=== PATIENT | female | born 1955 | race Caucasian/White ===

== ENCOUNTER 2017-06-15 18:01 | Inpatient (IN) | payer MEDICARE, MEDICAID ==
[~2017-06-15] VITALS: Ht 161.3 cm; Wt 113.6 kg
[~2017-06-15 18:01] MED LIST: ALBU8.5H8 IH; ASPI-845 PO; ATOR10TA70 PO; FENO145T25 PO; FLUT1AER IH; GABA-532 PO; INSU100I25 SQ; IPRA3AMP IH; LEVO300T6 PO; NICO-631 TD; NOVLG SQ; ONDA4TAB11 PO; PER5325T PO; SPIIN IH; TELM1TAB33 PO
[2017-06-15 18:40] LABS: BASOPHILS # (AUTO) 0.1 X10'3 (0-0.2); BASOPHILS % (AUTO) 1.4 % (0-1); EOSINOPHILS # (AUTO) 0.5 X10'3 (0-0.9); EOSINOPHILS % (AUTO) 4.7 % (0-6); HEMATOCRIT 42.4 % (35.0-45.0); HEMOGLOBIN 14.2 g/dl (12.0-16.0); LYMPHOCYTES # (AUTO) 3.1 X10'3 (1.1-4.8); LYMPHOCYTES % (AUTO) 28.7 % (21-51); MEAN CORPUSCULAR HEMOGLOBIN 30.2 PG (27.0-31.0); MEAN CORPUSCULAR HGB CONC 33.4 % (33.0-36.5); MEAN CORPUSCULAR VOLUME 90.4 FL (78-98); MEAN PLATELET VOLUME 8.2 FL (7.4-10.4); MONOCYTES # (AUTO) 1.1 X10'3 (0-0.9); MONOCYTES % (AUTO) 10.5 % (2-12); NEUTROPHILS # (AUTO) 5.9 X10'3 (1.8-7.7); NEUTROPHILS % (AUTO) 54.7 % (42-75); PLATELET COUNT 461 X10'3 (140-440); RED CELL DISTRIBUTION WIDTH 14.5 % (11.5-14.5); WHITE BLOOD COUNT 10.8 X10'3 (4.5-11.0)
[2017-06-15 18:47] LABS: INR 0.9 INR; PARTIAL THROMBOPLASTIN TIME 28 SECONDS (22-32); PROTHROMBIN TIME 9.8 SECONDS (9.0-12.0)
[2017-06-15 18:53] LABS: ALANINE AMINOTRANSFERASE 27 U/L (12-78); ALBUMIN 2.9 G/DL (3.4-5.0); ALBUMIN/GLOBULIN RATIO 0.5 (1.1-1.5); ALKALINE PHOSPHATASE 115 IU/L (46-116); ANION GAP 6 (8-16); ASPARTATE AMINO TRANSFERASE 16 U/L (10-37); BILIRUBIN,TOTAL 0.3 MG/DL (0.1-1.0); BLOOD UREA NITROGEN 19 MG/DL (7-18); CALCIUM 9.7 MG/DL (8.5-10.1); CHLORIDE 98 MMOL/L (99-107); GLUCOSE 226 MG/DL (70-104); POTASSIUM 4.2 MMOL/L (3.5-5.1); SODIUM 135 MMOL/L (135-145); TOTAL CARBON DIOXIDE 30.7 MMOL/L (24-32); TOTAL PROTEIN 8.5 G/DL (6.4-8.2); eGFR 56 ML/MIN
[2017-06-15] MEDS ORDERED: ketorolac trometh inj. 60 MG/2 ML VIAL IM ONE (19:00)
[2017-06-15] MEDS ORDERED: iohexol 350MG/ML 100ml bottle IV ONE (19:05)
[2017-06-15] MEDS ORDERED: levoFLOXACIN-Levaquin 500mg/D5 100 ML IV ONE (21:30)
[2017-06-15] MEDS ORDERED: albuterol 2.5 MG/3 ML nebule NEB ONE (21:35)
[2017-06-15] MEDS ORDERED: PANT-47 PO (22:09)
[2017-06-15] MEDS ORDERED: FLUT1DIS INH (22:18)
[2017-06-15] MEDS ORDERED: ZOL50T PO (22:18)
[2017-06-15] MEDS ORDERED: ASPI-1265 PO (22:18)
[2017-06-15] MEDS ORDERED: LOSA1TAB39 PO (22:18)
[2017-06-15] MEDS ORDERED: BISA-155 PO (22:26)
[2017-06-15] MEDS ORDERED: POLY17PO10 PO (22:26)
[2017-06-15] MEDS ORDERED: BUSP5TAB3 PO (22:31)
[2017-06-15] MEDS ORDERED: EMPA10TA PO (22:31)
[2017-06-15] MEDS ORDERED: FENO145T38 PO (22:31)
[2017-06-15] MEDS ORDERED: morphine 2 MG/ML inj. syringe IV ONE (22:50)
[2017-06-15] MEDS ORDERED: ondansetron/PF 4mg/2ml inj IV ONE (23:30)
[2017-06-16] MEDS ORDERED: magnesium 2GM in 50ml NS 50 ML IV PRN (00:50)
[2017-06-16] MEDS ORDERED: acetaminophen 325mg tablet PO PRN (00:50)
[2017-06-16] MEDS ORDERED: potassium Cl 20 mEq SR tablet PO PRN ×2 (00:50)
[2017-06-16] MEDS ORDERED: HYDROcodone/acetaminophen 5mg/325mg tablet PO PRN (00:50)
[2017-06-16] MEDS ORDERED: magnesium 4gm in 100ml NS 100 ML IV PRN (00:50)
[2017-06-16] MEDS ORDERED: mag hydrox/Alum hydrox/simeth 30ml oral suspension PO PRN (00:50)
[2017-06-16] MEDS ORDERED: potassium Cl 40MEQ/NS 500ml 500 ML IV PRN ×2 (00:50)
[2017-06-16] MEDS ORDERED: magnesium hydroxide 30ml (MOM) UD suspension PO PRN (00:50)
[2017-06-16] MEDS ORDERED: magnesium Cl slow-release 64mg tablet PO PRN (00:50)
[2017-06-16] MEDS: methylPREDNISolone sod succ 125mg/2ml vial IV SCH ×3 (01:41→16:00)
[2017-06-16 02:00] VITALS: BP 126/67
[2017-06-16] MEDS: CefTRIAXone 2gm/NS 100ml IVPB 100 ML IV SCH ×2 (02:43→20:37)
[2017-06-16] MEDS: normal saline 1000ml 1,000 ML IV SCH ×2 (02:44→12:53)
[2017-06-16] MEDS: HYDROcodone/acetaminophen 10/325mg tab PO PRN ×2 (02:46→20:46)
[2017-06-16] MEDS: azithromycin/NS 500mg/250ml 250 ML IV SCH ×2 (04:18→20:37)
[2017-06-16] MEDS: ondansetron/PF 4mg/2ml inj IV PRN ×2 (04:42→21:43)
[2017-06-16] MEDS: K and/or MAG REPLACEMENT MC SCH (07:01)
[2017-06-16 07:08] VITALS: BP 119/70
[2017-06-16] MEDS: bisacodyl 5mg tablet.DR PO SCH (07:35)
[2017-06-16] MEDS: gabapentin 300mg capsule PO SCH ×2 (07:36→20:35)
[2017-06-16] MEDS: HYDROchlorothiazide 25mg tablet PO SCH (07:36)
[2017-06-16] MEDS: aspirin 81mg tab.chew PO SCH (07:36)
[2017-06-16] MEDS: atorvastatin 10mg tablet PO SCH (07:36)
[2017-06-16] MEDS: losartan 50mg tablet PO SCH (07:37)
[2017-06-16] MEDS: pantoprazole 40mg Tablet.DR PO SCH (07:37)
[2017-06-16] MEDS: heparin, porcine 5000 units/ml vial SQ SCH ×2 (07:40→20:36)
[2017-06-16] MEDS ORDERED: sertraline 50mg tablet PO SCH (08:00)
[2017-06-16 08:04] LABS: HEMOGLOBIN A1C 11.8 % (4.5-6.2)
[2017-06-16] MEDS: Insulin Detemir pen SQ SCH ×2 (08:40→21:17)
[2017-06-16] MEDS: busPIRone 5mg tablet PO SCH ×2 (08:40→20:35)
[2017-06-16] MEDS: lactobacillus rhamnosus 10,000 MMU CELLS/CAPSULE PO SCH (17:47)
[2017-06-16] MEDS ORDERED: dextrose 50%-water 50ml dispensing syringe IV PRN ×2 (18:15)
[2017-06-16] MEDS ORDERED: MESSAGE TO PHARMACY PO ONE (18:15)
[2017-06-16] MEDS ORDERED: dextrose ORAL solution 15 GM/59 ML bottle PO PRN ×2 (18:15)
[2017-06-16] MEDS ORDERED: glucagon, human recombinant 1mg kit SUBCUT PRN (18:15)
[2017-06-16] MEDS: insulin Lispro (HumaLOG) vial - multi-dose SQ SCH ×2 (19:31→21:18)
[2017-06-16 20:00] VITALS: BP 154/98
[2017-06-16] MEDS ORDERED: insulin glargine (Lantus) pen - multi-dose SQ SCH (21:00)
[2017-06-16 23:00] VITALS: BP 111/61
[2017-06-17] MEDS: methylPREDNISolone sod succ 125mg/2ml vial IV SCH ×3 (00:17→16:25)
[2017-06-17 06:43] LABS: BASOPHILS # (AUTO) 0.1 X10'3 (0-0.2); BASOPHILS % (AUTO) 0.5 % (0-1); EOSINOPHILS % (AUTO) 0 % (0-6); HEMATOCRIT 36.2 % (35.0-45.0); HEMOGLOBIN 12.3 g/dl (12.0-16.0); LYMPHOCYTES # (AUTO) 1.5 X10'3 (1.1-4.8); LYMPHOCYTES % (AUTO) 14.7 % (21-51); MEAN CORPUSCULAR HEMOGLOBIN 30.5 PG (27.0-31.0); MEAN CORPUSCULAR HGB CONC 33.9 % (33.0-36.5); MEAN CORPUSCULAR VOLUME 89.9 FL (78-98); MEAN PLATELET VOLUME 8.1 FL (7.4-10.4); MONOCYTES # (AUTO) 0.2 X10'3 (0-0.9); MONOCYTES % (AUTO) 1.7 % (2-12); NEUTROPHILS # (AUTO) 8.3 X10'3 (1.8-7.7); NEUTROPHILS % (AUTO) 83.1 % (42-75); PLATELET COUNT 431 X10'3 (140-440); RED BLOOD COUNT 4.02 X10'6 (4.20-5.60); RED CELL DISTRIBUTION WIDTH 14.6 % (11.5-14.5)
[2017-06-17 07:00] VITALS: BP 126/62
[2017-06-17 07:10] LABS: ALANINE AMINOTRANSFERASE 22 U/L (12-78); ALBUMIN 2.5 G/DL (3.4-5.0); ALBUMIN/GLOBULIN RATIO 0.5 (1.1-1.5); ALKALINE PHOSPHATASE 87 IU/L (46-116); ANION GAP 8 (8-16); ASPARTATE AMINO TRANSFERASE 13 U/L (10-37); BILIRUBIN,TOTAL 0.1 MG/DL (0.1-1.0); BLOOD UREA NITROGEN 26 MG/DL (7-18); BUN/CREATININE RATIO 23.6 (6.6-38.0); CALCIUM 8.6 MG/DL (8.5-10.1); CHLORIDE 99 MMOL/L (99-107); CHOL/HDL RATIO 4.9 (0.00-4.99); CHOLESTEROL 161 MG/DL (0-200); GLUCOSE 369 MG/DL (70-104); HDL CHOLESTEROL 33 MG/DL (35-60); LDL CHOLESTEROL 112 MG/DL (50-100); MAGNESIUM 1.8 MG/DL (1.5-2.4); POTASSIUM 4.6 MMOL/L (3.5-5.1); SODIUM 133 MMOL/L (135-145); TOTAL CARBON DIOXIDE 26.2 MMOL/L (24-32); TOTAL PROTEIN 7.5 G/DL (6.4-8.2); TRIGLYCERIDES 114 MG/DL (20-135); eGFR 50 ML/MIN
[2017-06-17] MEDS: K and/or MAG REPLACEMENT MC SCH (08:00)
[2017-06-17] MEDS: Insulin Detemir pen SQ SCH ×2 (08:43→20:57)
[2017-06-17] MEDS: insulin Lispro (HumaLOG) vial - multi-dose SQ SCH ×4 (08:44→20:59)
[2017-06-17] MEDS: heparin, porcine 5000 units/ml vial SQ SCH ×2 (08:50→20:50)
[2017-06-17] MEDS: aspirin 81mg tab.chew PO SCH (08:55)
[2017-06-17] MEDS: lactobacillus rhamnosus 10,000 MMU CELLS/CAPSULE PO SCH ×2 (08:55→16:22)
[2017-06-17] MEDS: bisacodyl 5mg tablet.DR PO SCH (08:56)
[2017-06-17] MEDS: busPIRone 5mg tablet PO SCH ×2 (08:56→20:49)
[2017-06-17] MEDS: losartan 50mg tablet PO SCH (08:56)
[2017-06-17] MEDS: HYDROchlorothiazide 25mg tablet PO SCH (08:57)
[2017-06-17] MEDS: gabapentin 300mg capsule PO SCH ×2 (08:58→20:49)
[2017-06-17] MEDS: atorvastatin 10mg tablet PO SCH (08:58)
[2017-06-17] MEDS: pantoprazole 40mg Tablet.DR PO SCH (08:58)
[2017-06-17] MEDS ORDERED: sertraline 25mg tablet PO ONE (09:00)
[2017-06-17 11:36] VITALS: BP 124/71
[2017-06-17 20:00] VITALS: BP 159/73
[2017-06-17] MEDS: CefTRIAXone 2gm/NS 100ml IVPB 100 ML IV SCH (20:49)
[2017-06-17] MEDS: HYDROcodone/acetaminophen 10/325mg tab PO PRN (20:53)
[2017-06-17] MEDS ORDERED: LORazepam 2 mg/ml vial IV ONE (22:30)
[2017-06-17 23:00] VITALS: BP 149/69
[2017-06-18] MEDS: methylPREDNISolone sod succ 125mg/2ml vial IV SCH (00:10)
[2017-06-18 06:15] LABS: BASOPHILS % (AUTO) 0.4 % (0-1); EOSINOPHILS % (AUTO) 0.2 % (0-6); HEMATOCRIT 37.5 % (35.0-45.0); HEMOGLOBIN 12.7 g/dl (12.0-16.0); LYMPHOCYTES # (AUTO) 1.5 X10'3 (1.1-4.8); LYMPHOCYTES % (AUTO) 11.4 % (21-51); MEAN CORPUSCULAR HEMOGLOBIN 30.7 PG (27.0-31.0); MEAN CORPUSCULAR HGB CONC 33.9 % (33.0-36.5); MEAN CORPUSCULAR VOLUME 90.8 FL (78-98); MEAN PLATELET VOLUME 8.7 FL (7.4-10.4); MONOCYTES # (AUTO) 0.2 X10'3 (0-0.9); MONOCYTES % (AUTO) 1.8 % (2-12); NEUTROPHILS % (AUTO) 86.2 % (42-75); PLATELET COUNT 435 X10'3 (140-440); RED BLOOD COUNT 4.13 X10'6 (4.20-5.60); RED CELL DISTRIBUTION WIDTH 14.8 % (11.5-14.5); WHITE BLOOD COUNT 12.8 X10'3 (4.5-11.0)
[2017-06-18 06:25] LABS: ALANINE AMINOTRANSFERASE 41 U/L (12-78); ALBUMIN 2.7 G/DL (3.4-5.0); ALBUMIN/GLOBULIN RATIO 0.5 (1.1-1.5); ALKALINE PHOSPHATASE 103 IU/L (46-116); ANION GAP 4 (8-16); ASPARTATE AMINO TRANSFERASE 21 U/L (10-37); BILIRUBIN,TOTAL 0.1 MG/DL (0.1-1.0); BLOOD UREA NITROGEN 27 MG/DL (7-18); CALCIUM 8.5 MG/DL (8.5-10.1); CHLORIDE 100 MMOL/L (99-107); GLUCOSE 307 MG/DL (70-104); MAGNESIUM 2.3 MG/DL (1.5-2.4); SODIUM 135 MMOL/L (135-145); TOTAL CARBON DIOXIDE 31.3 MMOL/L (24-32); TOTAL PROTEIN 7.7 G/DL (6.4-8.2); eGFR 56 ML/MIN
[2017-06-18 06:57] VITALS: BP 138/81
[2017-06-18] MEDS: K and/or MAG REPLACEMENT MC SCH (08:00)
[2017-06-18] MEDS: Insulin Detemir pen SQ SCH ×2 (08:44→20:32)
[2017-06-18] MEDS: insulin Lispro (HumaLOG) vial - multi-dose SQ SCH ×4 (08:46→20:34)
[2017-06-18] MEDS: heparin, porcine 5000 units/ml vial SQ SCH ×2 (08:50→20:29)
[2017-06-18] MEDS: bisacodyl 5mg tablet.DR PO SCH (08:53)
[2017-06-18] MEDS: HYDROchlorothiazide 25mg tablet PO SCH (08:53)
[2017-06-18] MEDS: atorvastatin 10mg tablet PO SCH (08:53)
[2017-06-18] MEDS: aspirin 81mg tab.chew PO SCH (08:53)
[2017-06-18] MEDS: busPIRone 5mg tablet PO SCH ×2 (08:54→20:28)
[2017-06-18] MEDS: gabapentin 300mg capsule PO SCH ×2 (08:54→20:27)
[2017-06-18] MEDS: azithromycin 250mg tablet PO SCH (08:55)
[2017-06-18] MEDS: lactobacillus rhamnosus 10,000 MMU CELLS/CAPSULE PO SCH ×2 (09:09→16:57)
[2017-06-18] MEDS: sertraline 25mg tablet PO SCH (09:09)
[2017-06-18] MEDS: pantoprazole 40mg Tablet.DR PO SCH (09:10)
[2017-06-18] MEDS: levoFLOXACIN 750MG TABLET PO SCH ×2 (09:10→09:12)
[2017-06-18] MEDS: predniSONE 20 mg tablet PO SCH (09:10)
[2017-06-18] MEDS: losartan 50mg tablet PO SCH (09:10)
[2017-06-18 11:00] VITALS: BP 153/85
[2017-06-18 20:00] VITALS: BP 160/93
[2017-06-18] MEDS ORDERED: LORazepam 2 mg/ml vial IV PRN (20:00)
[2017-06-18] MEDS: HYDROcodone/acetaminophen 10/325mg tab PO PRN (20:28)
[2017-06-18 23:00] VITALS: BP 143/78
[2017-06-19 06:25] LABS: BASOPHILS # (AUTO) 0.1 X10'3 (0-0.2); BASOPHILS % (AUTO) 0.7 % (0-1); EOSINOPHILS # (AUTO) 0.1 X10'3 (0-0.9); EOSINOPHILS % (AUTO) 0.8 % (0-6); HEMATOCRIT 37.6 % (35.0-45.0); HEMOGLOBIN 12.7 g/dl (12.0-16.0); LYMPHOCYTES # (AUTO) 3.6 X10'3 (1.1-4.8); LYMPHOCYTES % (AUTO) 25.7 % (21-51); MEAN CORPUSCULAR HEMOGLOBIN 30.6 PG (27.0-31.0); MEAN CORPUSCULAR HGB CONC 33.8 % (33.0-36.5); MEAN CORPUSCULAR VOLUME 90.7 FL (78-98); MEAN PLATELET VOLUME 8.9 FL (7.4-10.4); MONOCYTES # (AUTO) 0.5 X10'3 (0-0.9); MONOCYTES % (AUTO) 3.9 % (2-12); NEUTROPHILS # (AUTO) 9.7 X10'3 (1.8-7.7); NEUTROPHILS % (AUTO) 68.9 % (42-75); PLATELET COUNT 438 X10'3 (140-440); RED BLOOD COUNT 4.15 X10'6 (4.20-5.60); RED CELL DISTRIBUTION WIDTH 14.9 % (11.5-14.5)
[2017-06-19 06:53] LABS: ALANINE AMINOTRANSFERASE 41 U/L (12-78); ALBUMIN 2.5 G/DL (3.4-5.0); ALBUMIN/GLOBULIN RATIO 0.6 (1.1-1.5); ALKALINE PHOSPHATASE 87 IU/L (46-116); ANION GAP 5 (8-16); ASPARTATE AMINO TRANSFERASE 19 U/L (10-37); BILIRUBIN,TOTAL 0.2 MG/DL (0.1-1.0); BLOOD UREA NITROGEN 26 MG/DL (7-18); BUN/CREATININE RATIO 21.7 (6.6-38.0); CALCIUM 8.4 MG/DL (8.5-10.1); CHLORIDE 103 MMOL/L (99-107); GLUCOSE 75 MG/DL (70-104); MAGNESIUM 2.2 MG/DL (1.5-2.4); SODIUM 141 MMOL/L (135-145); TOTAL CARBON DIOXIDE 32.7 MMOL/L (24-32); TOTAL PROTEIN 6.9 G/DL (6.4-8.2); eGFR 46 ML/MIN
[2017-06-19 07:00] VITALS: BP 114/55
[2017-06-19] MEDS: bisacodyl 5mg tablet.DR PO SCH (07:11)
[2017-06-19] MEDS: HYDROchlorothiazide 25mg tablet PO SCH (07:11)
[2017-06-19] MEDS: losartan 50mg tablet PO SCH (07:11)
[2017-06-19] MEDS: gabapentin 300mg capsule PO SCH (07:12)
[2017-06-19] MEDS: atorvastatin 10mg tablet PO SCH (07:12)
[2017-06-19] MEDS: predniSONE 20 mg tablet PO SCH (07:12)
[2017-06-19] MEDS: aspirin 81mg tab.chew PO SCH (07:12)
[2017-06-19] MEDS: lactobacillus rhamnosus 10,000 MMU CELLS/CAPSULE PO SCH (07:12)
[2017-06-19] MEDS: azithromycin 250mg tablet PO SCH (07:12)
[2017-06-19] MEDS: sertraline 25mg tablet PO SCH (07:12)
[2017-06-19] MEDS: busPIRone 5mg tablet PO SCH (07:12)
[2017-06-19] MEDS: pantoprazole 40mg Tablet.DR PO SCH (07:12)
[2017-06-19] MEDS: heparin, porcine 5000 units/ml vial SQ SCH (07:13)
[2017-06-19] MEDS: K and/or MAG REPLACEMENT MC SCH (08:00)
[2017-06-19] MEDS: Insulin Detemir pen SQ SCH (08:42)
[2017-06-19] MEDS: insulin Lispro (HumaLOG) vial - multi-dose SQ SCH ×2 (08:43→13:14)
[2017-06-19] MEDS: levoFLOXACIN 750MG TABLET PO SCH (11:06)
[2017-06-19 11:48] VITALS: BP 121/72
== END 2017-06-19 13:45 | DRG 682 ==
LOC: ER 18:01 → ED HOLD 06-16 00:48 → MED 3N 06-16 02:23
PROVIDERS: ADMIT Internal Medicine; ATTEND Internal Medicine
PROC: B32T1ZZ Computerized Tomography (CT Scan) of Left Pulmonary Artery using Low Osmolar Contrast (ICD-10-PCS; principal; 2017-06-15)
PROC: B3201ZZ Computerized Tomography (CT Scan) of Thoracic Aorta using Low Osmolar Contrast (ICD-10-PCS; 2017-06-15)
PROC: B32S1ZZ Computerized Tomography (CT Scan) of Right Pulmonary Artery using Low Osmolar Contrast (ICD-10-PCS; 2017-06-15)
DX: N17.0 Acute kidney failure with tubular necrosis (principal); J18.1 Lobar pneumonia, unspecified organism; J96.21 Acute and chronic respiratory failure with hypoxia; E43 Unspecified severe protein-calorie malnutrition; E11.40 Type 2 diabetes mellitus with diabetic neuropathy, unspecified; Z99.81 Dependence on supplemental oxygen; J44.1 Chronic obstructive pulmonary disease with (acute) exacerbation; Z68.41 Body mass index [BMI] 40.0-44.9, adult; J44.0 Chronic obstructive pulmonary disease with (acute) lower respiratory infection; D47.3 Essential (hemorrhagic) thrombocythemia; K21.9 Gastro-esophageal reflux disease without esophagitis; E03.9 Hypothyroidism, unspecified; E66.01 Morbid (severe) obesity due to excess calories; E78.5 Hyperlipidemia, unspecified; F32.9 Major depressive disorder, single episode, unspecified; F41.9 Anxiety disorder, unspecified; G47.30 Sleep apnea, unspecified; T38.0X5A Adverse effect of glucocorticoids and synthetic analogues, initial encounter; I10 Essential (primary) hypertension; I25.10 Atherosclerotic heart disease of native coronary artery without angina pectoris; K57.30 Diverticulosis of large intestine without perforation or abscess without bleeding; K59.00 Constipation, unspecified; Z56.0 Unemployment, unspecified; I25.2 Old myocardial infarction; Z79.82 Long term (current) use of aspirin; Z79.4 Long term (current) use of insulin; Z79.899 Other long term (current) drug therapy; Z86.73 Personal history of transient ischemic attack (TIA), and cerebral infarction without residual deficits; Z87.891 Personal history of nicotine dependence; Z82.5 Family history of asthma and other chronic lower respiratory diseases; Z80.9 Family history of malignant neoplasm, unspecified; Z83.3 Family history of diabetes mellitus; Y92.89 Other specified places as the place of occurrence of the external cause
CPT/HCPCS: 36415; 71045; 71275; 74174; 80053; 80061; 82948; 83036; 83605; 83735; 84145; 84484; 85025; 85610; 85730; 87040; 87070; 87502; 87503; 93005; 93306; 94640; 94760; 96372; 96374; 96375; 97116; 97162; 97530; 99285; J0456; J0696; J1644; J1815; J1885; J1956; J2060; J2270; J2405; J2930; J7030; J7512; Q9967

== ENCOUNTER 2017-07-05 22:53 | Inpatient (IN) | payer MEDICARE, MEDICAID ==
[~2017-07-05] VITALS: Ht 160 cm; Wt 118.0 kg
[~2017-07-05 22:53] MED LIST changes: +ASPI-1265 PO; -ASPI-845 PO; +BISA-155 PO; +BUSP5TAB3 PO; +EMPA10TA PO; -FENO145T25 PO; +FENO145T38 PO; -FLUT1AER IH; +FLUT1DIS INH; -IPRA3AMP IH; -LEVO300T6 PO; +LOSA1TAB39 PO; -NICO-631 TD; +PANT-47 PO; -PER5325T PO; +POLY17PO10 PO; -TELM1TAB33 PO; +ZOL50T PO
[2017-07-05] MEDS ORDERED: albuterol 2.5 MG/3 ML nebule NEB ONE (23:15)
[2017-07-05] MEDS ORDERED: magnesium 2GM in 50ml NS 50 ML IV ONE (23:15)
[2017-07-05] MEDS ORDERED: methylPREDNISolone sod succ 125mg/2ml vial IV ONE (23:15)
[2017-07-05 23:35] LABS: BASOPHILS % (AUTO) 0 % (0-1); EOSINOPHILS # (AUTO) 0.5 X10'3 (0-0.9); EOSINOPHILS % (AUTO) 6.1 % (0-6); HEMOGLOBIN 12.4 g/dl (12.0-16.0); LYMPHOCYTES # (AUTO) 1.5 X10'3 (1.1-4.8); LYMPHOCYTES % (AUTO) 19.8 % (21-51); MEAN CORPUSCULAR HEMOGLOBIN 30.3 PG (27.0-31.0); MEAN CORPUSCULAR HGB CONC 33.6 % (33.0-36.5); MEAN CORPUSCULAR VOLUME 90.4 FL (78-98); MEAN PLATELET VOLUME 8.6 FL (7.4-10.4); MONOCYTES # (AUTO) 0.1 X10'3 (0-0.9); MONOCYTES % (AUTO) 0.8 % (2-12); NEUTROPHILS # (AUTO) 5.6 X10'3 (1.8-7.7); NEUTROPHILS % (AUTO) 73.3 % (42-75); PLATELET COUNT 229 X10'3 (140-440); RED BLOOD COUNT 4.09 X10'6 (4.20-5.60); RED CELL DISTRIBUTION WIDTH 15.4 % (11.5-14.5); WHITE BLOOD COUNT 7.6 X10'3 (4.5-11.0)
[2017-07-05 23:52] LABS: ALANINE AMINOTRANSFERASE 33 U/L (12-78); ALBUMIN 2.9 G/DL (3.4-5.0); ALBUMIN/GLOBULIN RATIO 0.7 (1.1-1.5); ALKALINE PHOSPHATASE 90 IU/L (46-116); ANION GAP 9 (8-16); ASPARTATE AMINO TRANSFERASE 38 U/L (10-37); BILIRUBIN,TOTAL 0.2 MG/DL (0.1-1.0); BLOOD UREA NITROGEN 20 MG/DL (7-18); BUN/CREATININE RATIO 12.1 (6.6-38.0); CALCIUM 8.8 MG/DL (8.5-10.1); CHLORIDE 99 MMOL/L (99-107); CREATININE 1.65 MG/DL (0.40-0.90); GLUCOSE 237 MG/DL (70-104); SODIUM 137 MMOL/L (135-145); TOTAL CARBON DIOXIDE 28.9 MMOL/L (24-32); TOTAL PROTEIN 7.1 G/DL (6.4-8.2); eGFR 32 ML/MIN
[2017-07-05 23:55] LABS: PLATELET ESTIMATE NORMAL; TOTAL CELLS COUNTED 100
[2017-07-06] MEDS ORDERED: SITA100T11 PO (02:17)
[2017-07-06] MEDS ORDERED: HYDR-3973 PO (02:17)
[2017-07-06] MEDS ORDERED: LORA0.5T PO (02:17)
[2017-07-06] MEDS ORDERED: GUAI100L55 (02:17)
[2017-07-06] MEDS ORDERED: MORP15TA PO (02:17)
[2017-07-06] MEDS ORDERED: LEVO750T21 PO (02:17)
[2017-07-06] MEDS ORDERED: IPRA3AMP IH (02:17)
[2017-07-06] MEDS ORDERED: morphine 4 MG/ML inj SYRINge IV ONE (02:20)
[2017-07-06] MEDS ORDERED: ondansetron/PF 4mg/2ml inj IV ONE (03:10)
[2017-07-06] MEDS ORDERED: LORazepam 0.5 MG tablet PO PRN (03:10)
[2017-07-06] MEDS ORDERED: acetaminophen 650mg rectal suppository RC PRN (03:15)
[2017-07-06] MEDS ORDERED: glucagon, human recombinant 1mg kit SUBCUT PRN (03:15)
[2017-07-06] MEDS ORDERED: dextrose 50%-water 50ml dispensing syringe IV PRN ×2 (03:15)
[2017-07-06] MEDS ORDERED: diphenhydrAMINE 25mg capsule PO PRN (03:15)
[2017-07-06] MEDS ORDERED: magnesium hydroxide 30ml (MOM) UD suspension PO PRN (03:15)
[2017-07-06] MEDS ORDERED: MESSAGE TO PHARMACY PO ONE (03:15)
[2017-07-06] MEDS ORDERED: HYDROcodone/acetaminophen 10/325mg tab PO PRN (03:15)
[2017-07-06] MEDS ORDERED: acetaminophen 325mg tablet PO PRN ×2 (03:15)
[2017-07-06] MEDS ORDERED: metoclopramide 5 mg/ml inj IV PRN (03:15)
[2017-07-06] MEDS ORDERED: ondansetron/PF 4mg/2ml inj IV PRN (03:15)
[2017-07-06] MEDS ORDERED: HYDROmorphone inj. 0.5 MG/0.5 ML DISP.SYRIN IV PRN ×2 (03:15)
[2017-07-06] MEDS ORDERED: HYDROcodone/acetaminophen 5mg/325mg tablet PO PRN (03:15)
[2017-07-06] MEDS ORDERED: diphenhydrAMINE 50 mg/ml inj IV PRN (03:15)
[2017-07-06] MEDS ORDERED: mag hydrox/Alum hydrox/simeth 30ml oral suspension PO PRN (03:15)
[2017-07-06] MEDS ORDERED: bisacodyl 10mg suppository rectal RC PRN (03:15)
[2017-07-06] MEDS ORDERED: morphine 2 MG/ML inj. syringe IV PRN ×2 (03:15)
[2017-07-06] MEDS ORDERED: dextrose ORAL solution 15 GM/59 ML bottle PO PRN ×2 (03:15)
[2017-07-06] MEDS ORDERED: morphine 10 MG/5 ML UD oral solution PO PRN (03:25)
[2017-07-06] MEDS ORDERED: azithromycin 250mg tablet PO SCH (03:35)
[2017-07-06 03:51] LABS: ABG BASE EXCESS 2.9 mmol/L (-2.0-3.0); ABG HCO3 28.5 mmol/L (22.0-26.0); ABG OXYGEN SATURATION 94.3 % (95-98); ABG PCO2 (T) 48.6 mmHg (32.0-45.0); ABG PH (T) 7.388 (7.350-7.450); ALLEN'S TEST Positive; FCOHb 0.6 % (0.5-1.5); FLOW 4 L/min; FMetHb 0.1 % (0.3-1.12); FO2Hb 93.6 % (94-100); PATIENT TEMPERATURE 37.4
[2017-07-06 03:55] LABS: MAGNESIUM 1.8 MG/DL (1.5-2.4)
[2017-07-06 04:00] VITALS: BP 132/62
[2017-07-06] MEDS ORDERED: HYDROcodone/acetaminophen 10/325mg tab PO SCH (04:00)
[2017-07-06] MEDS ORDERED: cefTRIAXone 1g/NS 100ml IVPB 100 ML IV SCH (04:00)
[2017-07-06] MEDS ORDERED: ipratropium/albuterol 3ml nebule NEB PRN (04:25)
[2017-07-06] MEDS: ipratropium 0.5 MG/2.5ML nebule IH SCH ×4 (04:33→21:12)
[2017-07-06] MEDS: pantoprazole 40mg Tablet.DR PO SCH (07:35)
[2017-07-06] MEDS: fenofibrate 145mg tablet PO SCH (07:35)
[2017-07-06] MEDS: atorvastatin 10mg tablet PO SCH (07:36)
[2017-07-06] MEDS: aspirin 81mg tab.chew PO SCH (07:36)
[2017-07-06] MEDS: docusate sod 100mg capsule PO SCH ×2 (07:36→19:53)
[2017-07-06] MEDS: HYDROchlorothiazide 25mg tablet PO SCH (07:36)
[2017-07-06] MEDS: enoxaparin 30mg/0.3ml syringe SQ SCH ×2 (07:37→19:54)
[2017-07-06] MEDS: gabapentin 300mg capsule PO SCH ×2 (07:37→19:53)
[2017-07-06] MEDS: busPIRone 5mg tablet PO SCH ×2 (07:37→19:53)
[2017-07-06] MEDS: losartan 50mg tablet PO SCH (07:37)
[2017-07-06] MEDS: sertraline 50mg tablet PO SCH (07:37)
[2017-07-06 07:42] VITALS: BP 123/58
[2017-07-06] MEDS ORDERED: methylPREDNISolone sod succ 125mg/2ml vial IV SCH ×2 (08:00→20:00)
[2017-07-06] MEDS: insulin Lispro (HumaLOG) vial - multi-dose SQ SCH ×4 (08:34→21:21)
[2017-07-06 11:00] VITALS: BP 100/52
[2017-07-06] MEDS: azithromycin 250mg tablet PO SCH (15:47)
[2017-07-06 19:45] VITALS: BP 125/71
[2017-07-06] MEDS: methylPREDNISolone sod succ 125mg/2ml vial IV SCH (19:53)
[2017-07-06] MEDS ORDERED: temazepam 15mg capsule PO PRN (21:00)
[2017-07-06] MEDS: insulin glargine (Lantus) pen - multi-dose SQ SCH (21:22)
[2017-07-06 23:42] VITALS: BP 107/74
[2017-07-07] MEDS: ipratropium 0.5 MG/2.5ML nebule IH SCH ×4 (02:59→20:29)
[2017-07-07 06:01] LABS: BASOPHILS % (AUTO) 0.2 % (0-1); EOSINOPHILS % (AUTO) 0.2 % (0-6); HEMATOCRIT 35.1 % (35.0-45.0); HEMOGLOBIN 11.9 g/dl (12.0-16.0); LYMPHOCYTES # (AUTO) 1.3 X10'3 (1.1-4.8); LYMPHOCYTES % (AUTO) 13.1 % (21-51); MEAN CORPUSCULAR HEMOGLOBIN 30.6 PG (27.0-31.0); MEAN CORPUSCULAR HGB CONC 33.9 % (33.0-36.5); MEAN CORPUSCULAR VOLUME 90.3 FL (78-98); MEAN PLATELET VOLUME 8.9 FL (7.4-10.4); MONOCYTES # (AUTO) 0.1 X10'3 (0-0.9); MONOCYTES % (AUTO) 0.6 % (2-12); NEUTROPHILS # (AUTO) 8.6 X10'3 (1.8-7.7); NEUTROPHILS % (AUTO) 85.9 % (42-75); PLATELET COUNT 235 X10'3 (140-440); RED BLOOD COUNT 3.89 X10'6 (4.20-5.60); RED CELL DISTRIBUTION WIDTH 15.4 % (11.5-14.5); WHITE BLOOD COUNT 10.1 X10'3 (4.5-11.0)
[2017-07-07 06:28] LABS: ALANINE AMINOTRANSFERASE 39 U/L (12-78); ALBUMIN 2.8 G/DL (3.4-5.0); ALBUMIN/GLOBULIN RATIO 0.7 (1.1-1.5); ALKALINE PHOSPHATASE 67 IU/L (46-116); ANION GAP 9 (8-16); ASPARTATE AMINO TRANSFERASE 34 U/L (10-37); BILIRUBIN,TOTAL 0.2 MG/DL (0.1-1.0); BLOOD UREA NITROGEN 32 MG/DL (7-18); BUN/CREATININE RATIO 21.3 (6.6-38.0); CALCIUM 8.2 MG/DL (8.5-10.1); CHLORIDE 99 MMOL/L (99-107); CHOL/HDL RATIO 5.6 (0.00-4.99); CHOLESTEROL 141 MG/DL (0-200); GLUCOSE 286 MG/DL (70-104); HDL CHOLESTEROL 25 MG/DL (35-60); LDL CHOLESTEROL 91 MG/DL (50-100); POTASSIUM 4.4 MMOL/L (3.5-5.1); SODIUM 136 MMOL/L (135-145); TOTAL CARBON DIOXIDE 27.7 MMOL/L (24-32); TRIGLYCERIDES 167 MG/DL (20-135); eGFR 35 ML/MIN
[2017-07-07 08:00] VITALS: BP 104/63
[2017-07-07] MEDS: fenofibrate 145mg tablet PO SCH (08:29)
[2017-07-07] MEDS: pantoprazole 40mg Tablet.DR PO SCH (08:29)
[2017-07-07] MEDS: aspirin 81mg tab.chew PO SCH (08:29)
[2017-07-07] MEDS: busPIRone 5mg tablet PO SCH ×2 (08:29→19:18)
[2017-07-07] MEDS: gabapentin 300mg capsule PO SCH ×2 (08:30→19:18)
[2017-07-07] MEDS: sertraline 50mg tablet PO SCH (08:30)
[2017-07-07] MEDS: losartan 50mg tablet PO SCH (08:30)
[2017-07-07] MEDS: azithromycin 250mg tablet PO SCH (08:30)
[2017-07-07] MEDS: atorvastatin 10mg tablet PO SCH (08:30)
[2017-07-07] MEDS: HYDROchlorothiazide 25mg tablet PO SCH (08:30)
[2017-07-07] MEDS: methylPREDNISolone sod succ 125mg/2ml vial IV SCH ×2 (08:31→19:19)
[2017-07-07] MEDS: enoxaparin 30mg/0.3ml syringe SQ SCH ×2 (08:34→19:19)
[2017-07-07] MEDS: docusate sod 100mg capsule PO SCH ×2 (08:40→19:18)
[2017-07-07] MEDS: insulin Lispro (HumaLOG) vial - multi-dose SQ SCH ×4 (09:44→21:53)
[2017-07-07 12:00] VITALS: BP 123/72
[2017-07-07 18:00] VITALS: BP 140/74
[2017-07-07] MEDS: insulin glargine (Lantus) pen - multi-dose SQ SCH (21:54)
[2017-07-08] VITALS: BP 129/69
[2017-07-08] MEDS: ipratropium 0.5 MG/2.5ML nebule IH SCH ×4 (02:26→20:39)
[2017-07-08 06:49] LABS: BASOPHILS # (AUTO) 0.1 X10'3 (0-0.2); BASOPHILS % (AUTO) 0.9 % (0-1); EOSINOPHILS # (AUTO) 0.1 X10'3 (0-0.9); EOSINOPHILS % (AUTO) 0.7 % (0-6); HEMATOCRIT 35.8 % (35.0-45.0); HEMOGLOBIN 12.1 g/dl (12.0-16.0); LYMPHOCYTES % (AUTO) 15.9 % (21-51); MEAN CORPUSCULAR HEMOGLOBIN 30.6 PG (27.0-31.0); MEAN CORPUSCULAR HGB CONC 33.8 % (33.0-36.5); MEAN CORPUSCULAR VOLUME 90.4 FL (78-98); MEAN PLATELET VOLUME 8.6 FL (7.4-10.4); MONOCYTES # (AUTO) 0.8 X10'3 (0-0.9); MONOCYTES % (AUTO) 6.5 % (2-12); NEUTROPHILS # (AUTO) 9.7 X10'3 (1.8-7.7); PLATELET COUNT 261 X10'3 (140-440); RED BLOOD COUNT 3.95 X10'6 (4.20-5.60); RED CELL DISTRIBUTION WIDTH 15.1 % (11.5-14.5); WHITE BLOOD COUNT 12.7 X10'3 (4.5-11.0)
[2017-07-08 07:06] LABS: ALANINE AMINOTRANSFERASE 37 U/L (12-78); ALBUMIN/GLOBULIN RATIO 0.8 (1.1-1.5); ALKALINE PHOSPHATASE 53 IU/L (46-116); ANION GAP 8 (8-16); ASPARTATE AMINO TRANSFERASE 27 U/L (10-37); BILIRUBIN,TOTAL 0.2 MG/DL (0.1-1.0); BLOOD UREA NITROGEN 35 MG/DL (7-18); BUN/CREATININE RATIO 25.5 (6.6-38.0); CALCIUM 8.3 MG/DL (8.5-10.1); CHLORIDE 101 MMOL/L (99-107); CREATININE 1.37 MG/DL (0.40-0.90); GLUCOSE 224 MG/DL (70-104); POTASSIUM 4.4 MMOL/L (3.5-5.1); SODIUM 139 MMOL/L (135-145); TOTAL CARBON DIOXIDE 30.2 MMOL/L (24-32); eGFR 39 ML/MIN
[2017-07-08] MEDS: atorvastatin 10mg tablet PO SCH (07:39)
[2017-07-08] MEDS: busPIRone 5mg tablet PO SCH ×2 (07:39→20:16)
[2017-07-08] MEDS: methylPREDNISolone sod succ 125mg/2ml vial IV SCH ×2 (07:40→20:17)
[2017-07-08] MEDS: sertraline 50mg tablet PO SCH (07:40)
[2017-07-08] MEDS: docusate sod 100mg capsule PO SCH ×2 (07:40→20:16)
[2017-07-08] MEDS: losartan 50mg tablet PO SCH (07:40)
[2017-07-08] MEDS: HYDROchlorothiazide 25mg tablet PO SCH (07:40)
[2017-07-08] MEDS: fenofibrate 145mg tablet PO SCH (07:40)
[2017-07-08] MEDS: pantoprazole 40mg Tablet.DR PO SCH (07:40)
[2017-07-08] MEDS: gabapentin 300mg capsule PO SCH ×2 (07:40→20:16)
[2017-07-08] MEDS: aspirin 81mg tab.chew PO SCH (07:40)
[2017-07-08] MEDS: azithromycin 250mg tablet PO SCH (07:40)
[2017-07-08] MEDS: enoxaparin 30mg/0.3ml syringe SQ SCH ×2 (07:41→20:16)
[2017-07-08 08:00] VITALS: BP 134/76
[2017-07-08] MEDS: insulin Lispro (HumaLOG) vial - multi-dose SQ SCH ×4 (08:16→21:52)
[2017-07-08 11:00] VITALS: BP 148/76
[2017-07-08] MEDS: lactobacillus rhamnosus 10,000 MMU CELLS/CAPSULE PO SCH (17:37)
[2017-07-08 19:00] VITALS: BP 140/65
[2017-07-08 20:19] LABS: BASOPHILS # (AUTO) 0.2 X10'3 (0-0.2); BASOPHILS % (AUTO) 1.2 % (0-1); EOSINOPHILS % (AUTO) 0.2 % (0-6); HEMATOCRIT 38.3 % (35.0-45.0); HEMOGLOBIN 12.7 g/dl (12.0-16.0); MEAN CORPUSCULAR HEMOGLOBIN 30.3 PG (27.0-31.0); MEAN CORPUSCULAR HGB CONC 33.2 % (33.0-36.5); MEAN CORPUSCULAR VOLUME 91.4 FL (78-98); MEAN PLATELET VOLUME 9.1 FL (7.4-10.4); MONOCYTES # (AUTO) 0.7 X10'3 (0-0.9); MONOCYTES % (AUTO) 5.8 % (2-12); NEUTROPHILS # (AUTO) 9.6 X10'3 (1.8-7.7); NEUTROPHILS % (AUTO) 76.8 % (42-75); PLATELET COUNT 268 X10'3 (140-440); RED BLOOD COUNT 4.19 X10'6 (4.20-5.60); RED CELL DISTRIBUTION WIDTH 15.1 % (11.5-14.5); WHITE BLOOD COUNT 12.5 X10'3 (4.5-11.0)
[2017-07-08] MEDS: insulin glargine (Lantus) pen - multi-dose SQ SCH (21:48)
[2017-07-09] VITALS: BP 123/63
[2017-07-09] MEDS: ipratropium 0.5 MG/2.5ML nebule IH SCH ×2 (02:35→07:44)
[2017-07-09 05:37] LABS: BASOPHILS # (AUTO) 0.1 X10'3 (0-0.2); EOSINOPHILS # (AUTO) 0.1 X10'3 (0-0.9); EOSINOPHILS % (AUTO) 0.5 % (0-6); HEMATOCRIT 36.1 % (35.0-45.0); HEMOGLOBIN 12.4 g/dl (12.0-16.0); LYMPHOCYTES # (AUTO) 1.9 X10'3 (1.1-4.8); MEAN CORPUSCULAR HEMOGLOBIN 30.5 PG (27.0-31.0); MEAN CORPUSCULAR HGB CONC 34.3 % (33.0-36.5); MEAN PLATELET VOLUME 8.6 FL (7.4-10.4); MONOCYTES # (AUTO) 0.6 X10'3 (0-0.9); MONOCYTES % (AUTO) 5.7 % (2-12); NEUTROPHILS # (AUTO) 8.5 X10'3 (1.8-7.7); NEUTROPHILS % (AUTO) 75.8 % (42-75); PLATELET COUNT 249 X10'3 (140-440); RED BLOOD COUNT 4.06 X10'6 (4.20-5.60); RED CELL DISTRIBUTION WIDTH 14.9 % (11.5-14.5); WHITE BLOOD COUNT 11.3 X10'3 (4.5-11.0)
[2017-07-09 06:35] LABS: ALANINE AMINOTRANSFERASE 37 U/L (12-78); ALBUMIN 2.9 G/DL (3.4-5.0); ALBUMIN/GLOBULIN RATIO 0.7 (1.1-1.5); ALKALINE PHOSPHATASE 52 IU/L (46-116); ANION GAP 7 (8-16); ASPARTATE AMINO TRANSFERASE 20 U/L (10-37); BILIRUBIN,TOTAL 0.3 MG/DL (0.1-1.0); BLOOD UREA NITROGEN 32 MG/DL (7-18); BUN/CREATININE RATIO 26.9 (6.6-38.0); CALCIUM 8.2 MG/DL (8.5-10.1); CHLORIDE 100 MMOL/L (99-107); CREATININE 1.19 MG/DL (0.40-0.90); GLUCOSE 253 MG/DL (70-104); POTASSIUM 4.5 MMOL/L (3.5-5.1); SODIUM 137 MMOL/L (135-145); TOTAL CARBON DIOXIDE 30.1 MMOL/L (24-32); TOTAL PROTEIN 6.9 G/DL (6.4-8.2); eGFR 46 ML/MIN
[2017-07-09 07:00] VITALS: BP 141/77
[2017-07-09] MEDS: docusate sod 100mg capsule PO SCH (09:06)
[2017-07-09] MEDS: aspirin 81mg tab.chew PO SCH (09:06)
[2017-07-09] MEDS: azithromycin 250mg tablet PO SCH (09:06)
[2017-07-09] MEDS: fenofibrate 145mg tablet PO SCH (09:06)
[2017-07-09] MEDS: busPIRone 5mg tablet PO SCH (09:06)
[2017-07-09] MEDS: losartan 50mg tablet PO SCH (09:06)
[2017-07-09] MEDS: lactobacillus rhamnosus 10,000 MMU CELLS/CAPSULE PO SCH (09:07)
[2017-07-09] MEDS: atorvastatin 10mg tablet PO SCH (09:07)
[2017-07-09] MEDS: sertraline 50mg tablet PO SCH (09:07)
[2017-07-09] MEDS: HYDROchlorothiazide 25mg tablet PO SCH (09:08)
[2017-07-09] MEDS: gabapentin 300mg capsule PO SCH (09:08)
[2017-07-09] MEDS: pantoprazole 40mg Tablet.DR PO SCH (09:08)
[2017-07-09] MEDS: enoxaparin 30mg/0.3ml syringe SQ SCH (09:09)
[2017-07-09] MEDS: methylPREDNISolone sod succ 125mg/2ml vial IV SCH (09:09)
[2017-07-09] MEDS: insulin Lispro (HumaLOG) vial - multi-dose SQ SCH (09:17)
[2017-07-09 11:06] VITALS: BP 141/79
== END 2017-07-09 13:30 | DRG 291 ==
LOC: ER 22:53 → ED HOLD 07-06 03:11 → MED 3N 07-06 03:54
PROVIDERS: ADMIT Family Medicine; ATTEND Internal Medicine
DX: I11.0 Hypertensive heart disease with heart failure (principal); J18.9 Pneumonia, unspecified organism; N17.9 Acute kidney failure, unspecified; J44.1 Chronic obstructive pulmonary disease with (acute) exacerbation; J44.0 Chronic obstructive pulmonary disease with (acute) lower respiratory infection; I50.33 Acute on chronic diastolic (congestive) heart failure; E11.65 Type 2 diabetes mellitus with hyperglycemia; R09.02 Hypoxemia; E78.00 Pure hypercholesterolemia, unspecified; I25.10 Atherosclerotic heart disease of native coronary artery without angina pectoris; F32.9 Major depressive disorder, single episode, unspecified; I25.2 Old myocardial infarction; Z99.81 Dependence on supplemental oxygen; Z79.4 Long term (current) use of insulin; Z79.82 Long term (current) use of aspirin; Z79.899 Other long term (current) drug therapy; Z86.14 Personal history of Methicillin resistant Staphylococcus aureus infection; Z86.73 Personal history of transient ischemic attack (TIA), and cerebral infarction without residual deficits; Z87.891 Personal history of nicotine dependence; Z82.5 Family history of asthma and other chronic lower respiratory diseases; Z83.3 Family history of diabetes mellitus
CPT/HCPCS: 36415; 36600; 71045; 80053; 80061; 82803; 82948; 83036; 83735; 83880; 85018; 85025; 87070; 93005; 94640; 94667; 94668; 94760; 96365; 96366; 96375; 99285; J0696; J1650; J1815; J2270; J2405; J2930; J3475

== ENCOUNTER 2019-09-29 00:43 | Emergency (ER) | payer MEDICARE, MEDICAID ==
[~2019-09-29] VITALS: Ht 160 cm; Wt 127.3 kg
[~2019-09-29 00:43] MED LIST changes: +HYDR-3973 PO; +IPRA3AMP31 IH; +LORA0.5T PO; +MORP15TA PO; +ONDA-103 PO; -ONDA4TAB11 PO; +SERT-153 PO; -ZOL50T PO
[2019-09-29] MEDS ORDERED: insulin regular, human U-100 3ml vial - multi-dose SQ ONE (01:10)
[2019-09-29] MEDS ORDERED: insulin regular, human 10 units/0.1 ml syringe SQ ONE (01:10)
[2019-09-29 01:18] LABS: BASOPHILS # (AUTO) 0.2 X10'3 (0-0.2); BASOPHILS % (AUTO) 1.6 % (0-1); EOSINOPHILS % (AUTO) 0.2 % (0-6); HEMATOCRIT 34.6 % (35.0-45.0); HEMOGLOBIN 11.2 g/dl (12.0-16.0); LYMPHOCYTES # (AUTO) 1.4 X10'3 (1.1-4.8); LYMPHOCYTES % (AUTO) 12.2 % (21-51); MEAN CORPUSCULAR HEMOGLOBIN 30.2 PG (27.0-31.0); MEAN CORPUSCULAR HGB CONC 32.2 g/dL (33.0-36.5); MEAN CORPUSCULAR VOLUME 93.9 FL (78-98); MEAN PLATELET VOLUME 8.9 FL (7.4-10.4); MONOCYTES # (AUTO) 0.5 X10'3 (0-0.9); NEUTROPHILS # (AUTO) 9.7 X10'3 (1.8-7.7); PLATELET COUNT 368 X10'3 (140-440); RED BLOOD COUNT 3.69 X10'6 (4.20-5.60); RED CELL DISTRIBUTION WIDTH 17.5 % (11.5-14.5); WHITE BLOOD COUNT 11.8 X10'3 (4.5-11.0)
[2019-09-29 01:24] LABS: ALANINE AMINOTRANSFERASE 27 U/L (12-78); ALBUMIN 3.5 G/DL (3.4-5.0); ALBUMIN/GLOBULIN RATIO 0.7 (1.1-1.5); ALKALINE PHOSPHATASE 186 IU/L (46-116); ANION GAP 6 (8-16); ASPARTATE AMINO TRANSFERASE 19 U/L (10-37); BILIRUBIN,TOTAL 0.3 MG/DL (0.1-1.0); BLOOD UREA NITROGEN 70 MG/DL (7-18); BUN/CREATININE RATIO 29.4 (6.6-38.0); CALCIUM 8.5 MG/DL (8.5-10.1); CHLORIDE 101 MMOL/L (99-107); CREATININE 2.38 MG/DL (0.40-0.90); SODIUM 134 MMOL/L (135-145); TOTAL CARBON DIOXIDE 27.3 MMOL/L (24-32); TOTAL PROTEIN 8.3 G/DL (6.4-8.2); eGFR 20 ML/MIN
[2019-09-29 01:25] LABS: GLUCOSE 450 MG/DL (70-104)
[2019-09-29 01:34] VITALS: BP 154/72
[2019-09-29 01:35] LABS: ANISOCYTOSIS 1+; PLATELET ESTIMATE NORMAL; TOTAL CELLS COUNTED 100
--- NOTE | 2019-09-29 01:36 | NUR ---
PT ELDER CASTLE CAN BE REACHEDAT [phone]
== END 2019-09-29 02:07 | disposition home or self-care (01) ==
LOC: ER 00:43
DX: E11.65 Type 2 diabetes mellitus with hyperglycemia (principal); I25.10 Atherosclerotic heart disease of native coronary artery without angina pectoris; E78.00 Pure hypercholesterolemia, unspecified; I10 Essential (primary) hypertension; I25.2 Old myocardial infarction; J45.909 Unspecified asthma, uncomplicated; F32.9 Major depressive disorder, single episode, unspecified; Z86.73 Personal history of transient ischemic attack (TIA), and cerebral infarction without residual deficits; Z86.14 Personal history of Methicillin resistant Staphylococcus aureus infection; Z72.89 Other problems related to lifestyle; Z56.0 Unemployment, unspecified; Z79.82 Long term (current) use of aspirin; Z79.4 Long term (current) use of insulin; Z79.899 Other long term (current) drug therapy
CPT/HCPCS: 36415; 80053; 85025; 99284; J1815

== ENCOUNTER 2020-02-05 10:06 | Emergency (ER) | payer MEDICARE, MEDICAID ==
[~2020-02-05] VITALS: Ht 160 cm; Wt 118.2 kg
[~2020-02-05 10:06] MED LIST changes: +ATOR-2 PO; -ATOR10TA70 PO; +BACL-11 PO; -BISA-155 PO; +FURO-150 PO; +GEMF600T89 PO; -HYDR-3973 PO; -INSU100I25 SQ; +ISOS30TA9 PO; +LANTUS SQ; +LEVO300T6 PO; -MORP15TA PO; -POLY17PO10 PO; +SUCR1TAB PO; +psyllium seed packet PO
[2020-02-05 10:50] LABS: BASOPHILS # (AUTO) 0.1 X10'3 (0-0.2); BASOPHILS % (AUTO) 1.1 % (0-1); EOSINOPHILS # (AUTO) 0.4 X10'3 (0-0.9); EOSINOPHILS % (AUTO) 3.8 % (0-6); HEMATOCRIT 33.5 % (35.0-45.0); HEMOGLOBIN 10.6 g/dl (12.0-16.0); LYMPHOCYTES # (AUTO) 2.4 X10'3 (1.1-4.8); LYMPHOCYTES % (AUTO) 26.1 % (21-51); MEAN CORPUSCULAR HEMOGLOBIN 28.2 PG (27.0-31.0); MEAN CORPUSCULAR HGB CONC 31.8 g/dL (33.0-36.5); MEAN CORPUSCULAR VOLUME 88.6 FL (78-98); MEAN PLATELET VOLUME 8.5 FL (7.4-10.4); MONOCYTES # (AUTO) 0.6 X10'3 (0-0.9); MONOCYTES % (AUTO) 6.9 % (2-12); NEUTROPHILS # (AUTO) 5.7 X10'3 (1.8-7.7); NEUTROPHILS % (AUTO) 62.1 % (42-75); PLATELET COUNT 497 X10'3 (140-440); RED BLOOD COUNT 3.78 X10'6 (4.20-5.60); RED CELL DISTRIBUTION WIDTH 16.6 % (11.5-14.5); WHITE BLOOD COUNT 9.2 X10'3 (4.5-11.0)
[2020-02-05 11:09] LABS: ALANINE AMINOTRANSFERASE 22 U/L (12-78); ALBUMIN/GLOBULIN RATIO 0.6 (1.1-1.5); ALKALINE PHOSPHATASE 63 IU/L (46-116); ANION GAP 10 (8-16); ASPARTATE AMINO TRANSFERASE 19 U/L (10-37); BILIRUBIN,TOTAL 0.2 MG/DL (0.1-1.0); BLOOD UREA NITROGEN 73 MG/DL (7-18); BUN/CREATININE RATIO 24.6 (6.6-38.0); CALCIUM 8.7 MG/DL (8.5-10.1); CHLORIDE 96 MMOL/L (99-107); CREATININE 2.97 MG/DL (0.40-0.90); GLUCOSE 236 MG/DL (70-104); POTASSIUM 4.1 MMOL/L (3.5-5.1); SODIUM 133 MMOL/L (135-145); TOTAL CARBON DIOXIDE 26.7 MMOL/L (24-32); TOTAL PROTEIN 7.7 G/DL (6.4-8.2); eGFR 16 ML/MIN
[2020-02-05 12:44] LABS: ANISOCYTOSIS 1+; PLATELET ESTIMATE INCREASED; TOTAL CELLS COUNTED 100
[2020-02-05 12:45] LABS: LARGE PLATELETS FEW
[2020-02-05 12:48] LABS: STOMATOCYTES 1+; TOXIC GRANULATION 1+
[2020-02-05 12:49] LABS: POLYCHROMASIA FEW
--- NOTE | 2020-02-05 13:55 | NUR ---
Pt assisted to change her adult undergarment due to incontinence of urine. Pt given a sandwich, cheese snack and milk for lunch while waiting for [employer].
[2020-02-05 13:56] VITALS: BP 130/62
== END 2020-02-05 14:21 | disposition home or self-care (01) ==
LOC: ER 10:06
DX: N18.4 Chronic kidney disease, stage 4 (severe) (principal); D63.1 Anemia in chronic kidney disease; R42 Dizziness and giddiness; R20.0 Anesthesia of skin; I25.10 Atherosclerotic heart disease of native coronary artery without angina pectoris; E78.00 Pure hypercholesterolemia, unspecified; I12.9 Hypertensive chronic kidney disease with stage 1 through stage 4 chronic kidney disease, or unspecified chronic kidney disease; I25.2 Old myocardial infarction; J44.9 Chronic obstructive pulmonary disease, unspecified; E11.9 Type 2 diabetes mellitus without complications; F32.9 Major depressive disorder, single episode, unspecified; Z86.14 Personal history of Methicillin resistant Staphylococcus aureus infection; Z86.73 Personal history of transient ischemic attack (TIA), and cerebral infarction without residual deficits; Z98.890 Other specified postprocedural states; Z56.0 Unemployment, unspecified; Z79.82 Long term (current) use of aspirin; Z79.4 Long term (current) use of insulin; Z79.899 Other long term (current) drug therapy
CPT/HCPCS: 36415; 70450; 80053; 84484; 85007; 85025; 93005; 99285

== ENCOUNTER 2020-02-09 13:14 | Day surgery (SDC) | payer MEDICARE, MEDICAID ==
[~2020-02-09] VITALS: Ht 161.3 cm; Wt 118.2 kg
[2020-02-09 13:28] VITALS: BP 136/58
[2020-02-09] MEDS ORDERED: MIDAZolam 5mg/5ml vial ONE (13:31)
[2020-02-09] MEDS ORDERED: fentaNYL/PF 50MCG/1 ML 2ML syringe ONE (13:31)
[2020-02-09] MEDS ORDERED: LIDOcaine Viscous 15ml cup ONE (13:31)
[2020-02-09] MEDS ORDERED: BISA10SU60 RC (14:11)
[2020-02-09] MEDS ORDERED: HYDR-3964 PO (14:12)
[2020-02-09] MEDS ORDERED: LACTC PO (14:13)
[2020-02-09] MEDS ORDERED: POLY17PO10 PO (14:15)
[2020-02-09] MEDS ORDERED: SENN-263 PO (14:16)
[2020-02-09] MEDS ORDERED: MICONAZOLE POWDER TOP (14:17)
[2020-02-09] MEDS ORDERED: MYLANTA PO (14:20)
[2020-02-09 15:00] VITALS: BP 88/50
[2020-02-09 15:10] VITALS: BP 85/50
[2020-02-09 15:20] VITALS: BP 94/48
[2020-02-09 15:30] VITALS: BP 100/46
[2020-02-09 15:40] VITALS: BP 99/53
== END 2020-02-09 15:50 ==
LOC: GI LAB 13:14
PROVIDERS: ATTEND Internal Medicine Gastroenterology
DX: R11.2 Nausea with vomiting, unspecified (principal); K29.50 Unspecified chronic gastritis without bleeding; J44.9 Chronic obstructive pulmonary disease, unspecified; I10 Essential (primary) hypertension; I25.2 Old myocardial infarction; E11.9 Type 2 diabetes mellitus without complications; E66.9 Obesity, unspecified; Z68.42 Body mass index [BMI] 45.0-49.9, adult; Z86.73 Personal history of transient ischemic attack (TIA), and cerebral infarction without residual deficits; Z87.891 Personal history of nicotine dependence; Z79.899 Other long term (current) drug therapy; Z79.84 Long term (current) use of oral hypoglycemic drugs
CPT/HCPCS: 43239; 82948; J2250; J3010; J7040; 88305; 99152; A4620